=== PATIENT | male | born 1950 | race Caucasian/White ===

== ENCOUNTER → 2023-07-25 11:30 | Day surgery (SDC) | payer MEDICARE, MEDICAID, SELFPAY ==
[2023-06-18 09:32] VITALS: BMI 20.5
--- NOTE | 2023-06-18 09:39 | PC.NURSE ---
Report to the Outpatient Waiting Room, entrance under the green pavilion located off [facility], at time __0700 on date _06/27/23 . Planned Procedure Time: 0900 . Time changes happen often and if your time is changed the preop area will call you the afternoon before. - You and your visitor will be asked to self-screen and do not enter if you have any COVID symptoms. - A mask is optional within the hospital at this time. Patients may have clear liquids (water, carbonated beverages, clear teas, apple juice) until 3 hours prior to surgery with a maximum of 20 ounces. - No food from midnight until time of surgery - Infants may have breast milk until 4 hours before surgery, infant formula 6 hours prior to surgery. - Children will be allowed to drink immediately following surgery. If applicable, please bring a bottle or sippy cup to assist with drinking. Juice, water, soda, and popsicles are readily available. For infants on formula, please bring formula the day of surgery. Pacifiers are allowed. Take the following medications with a SIP of water the morning of surgery: _BUPROPION,DIVALPROEX,PREGABALIN SERTRALINE DO NOT STOP ANY OF YOUR OTHER PRESCRIPTION MEDICATIONS PRIOR TO SURGERY ?EXCEPT THE FOLLOWING Medications to discontinue per physician ___PLAVIX HOLD 7 DAYS PRE OP PER DR CADE.LAST DOSE 06/19/23 Please no make-up, nail welsh, hairspray, perfume, deodorant, or body powder the day of surgery. No jewelry (including any body piercings) or valuables the day of surgery, leave them at home. Please take a shower or bath the night before, or the morning of, surgery with an antibacterial soap. Wear comfortable, loose fitting clothing. Children are encouraged to wear pajamas. - Jewelry must be removed prior to entering the operating room. Rings and piercings that are not removed may be cut off. - The hospital will not accept responsibility for valuables. - Please leave all valuables, including medications, at home the day of surgery. If you are going home after surgery, a licensed m48/m60 tank driver must drive you home. - NO public transportation without another adult if you receive anesthesia. - We recommend that an adult stay with you for 24 hours following discharge. - We also recommend that you do not drive, make important decision, drink alcoholic beverages, or take any drugs that were not prescribed by your health care provider for at least 24 hours after your discharge time. For Pediatric surgeries, we recommend two adults accompany the child home. Follow any additional instructions given to you from your surgeon. If you or anyone in your household have experienced Covid symptoms in the past week, please notify your surgeon or the nurse liaison at the phone number below for possible testing. Telephone instructions given to __PT'S KENTON and asked if any additional questions and then verbalized understanding. Patient advised to call surgeon office or pre surgery nurse liaison [phone] if any additional questions.
--- NOTE | 2023-07-16 15:03 | PC.NURSE ---
Report to the Outpatient Waiting Room, entrance under the green pavilion located off [facility], at time ___30____ on date __07/25/23 . Planned Procedure Time: _1030 . Time changes happen often and if your time is changed the preop area will call you the afternoon before. - You and your visitor will be asked to self-screen and do not enter if you have any COVID symptoms. - A mask is optional within the hospital at this time. Patients may have clear liquids (water, carbonated beverages, clear teas, apple juice) until 3 hours prior to surgery with a maximum of 20 ounces. - No food from midnight until time of surgery - Infants may have breast milk until 4 hours before surgery, formula 6 hours prior to surgery. - Children will be allowed to drink immediately following surgery. If applicable, please bring a bottle or sippy cup to assist with drinking. Juice, water, soda, and popsicles are readily available. For infants on formula, please bring formula the day of surgery. Pacifiers are allowed. Take the following medications with a SIP of water the morning of surgery: ___BUPROPION,DIVALPROEX,PREGABALIN, AND SERTRALINE DO NOT STOP ANY OF YOUR OTHER PRESCRIPTION MEDICATIONS PRIOR TO SURGERY ?EXCEPT THE FOLLOWING Medications to discontinue per physician ____PLAVIX HOLD 7 DAYS PRE OP PER DR CADE. LAST DOSE 07/17/23 Please no make-up, nail albanian, hairspray, perfume, deodorant, or body powder the day of surgery. No jewelry (including any body piercings) or valuables the day of surgery, leave them at home. Please take a shower or bath the night before, or the morning of, surgery with an antibacterial soap. Wear comfortable, loose fitting clothing. Children are encouraged to wear pajamas. - Jewelry must be removed prior to entering the operating room. Rings and piercings that are not removed may be cut off. - The hospital will not accept responsibility for valuables. - Please leave all valuables, including medications, at home the day of surgery. If you are going home after surgery, a licensed warehouse driver must drive you home. - NO public transportation without another adult if you receive anesthesia. - We recommend that an adult stay with you for 24 hours following discharge. - We also recommend that you do not drive, make important decision, drink alcoholic beverages, or take any drugs that were not prescribed by your health care provider for at least 24 hours after your discharge time. For Pediatric surgeries, we recommend two adults accompany the child home. Follow any additional instructions given to you from your surgeon. If you or anyone in your household have experienced Covid symptoms in the past week, please notify your surgeon or the nurse liaison at the phone number below for possible testing. Telephone instructions given to ___PT'S KENTON and asked if any additional questions and then verbalized understanding. Patient advised to call surgeon office or pre surgery nurse liaison [phone] if any additional questions.
--- NOTE | 2023-07-16 15:09 | PC.NURSE ---
STATES NO CHANGE IN HEALTH HX SINCE LAST INTERVIEW ON 06/18/23
[2023-07-25 08:47] VITALS: BP 171/95; PULSE 78; RESP 20; TEMP 36.7; O2SAT 100
[2023-07-25] MEDS: LACTATED RINGERS 1,000 ML 30 ML IV CONT (09:05)
[2023-07-25 09:12] LABS: Glucose Point of Care 115 mg/dl (65-105)
== END | disposition home or self-care (01) ==
PROVIDERS: PCP Family Medicine; Visit Provider Neurological Surgery
DX: M51.16 Intervertebral disc disorders with radiculopathy, lumbar region (principal); Z53.8 Procedure and treatment not carried out for other reasons
CPT/HCPCS: 82948; 99213; G0463; J7120

== ENCOUNTER 2023-08-29 01:09 | Day surgery (SDC) | payer MEDICARE, MEDICAID, SELFPAY ==
[2023-08-21 12:04] VITALS: BMI 25.0
--- NOTE | 2023-08-21 12:10 | PC.NURSE ---
Report to the Outpatient Waiting Room, entrance under the green pavilion located off [facility], at time _0600_ on date _[id number]_. Planned Procedure Time: _0730_. Time changes happen often and if your time is changed the preop area will call you the afternoon before. - You and your visitor will be asked to self-screen and do not enter if you have any COVID symptoms. - A mask is optional within the hospital at this time. Patients may have clear liquids (water, carbonated beverages, clear teas, apple juice) until 3 hours prior to surgery with a maximum of 20 ounces. - No food from midnight until time of surgery Take the following medications with a SIP of water the morning of surgery: ___Divalproex, Sertraline and Pregabalin DO NOT STOP ANY OF YOUR OTHER PRESCRIPTION MEDICATIONS PRIOR TO SURGERY ?EXCEPT THE FOLLOWING Medications to discontinue per physician Cilostazol and Clopidogrel Date to take last dhyw___[id number] Please no make-up, nail austrian, hairspray, perfume, deodorant, or body powder the day of surgery. No jewelry (including any body piercings) or valuables the day of surgery, leave them at home. Please take a shower or bath the night before, or the morning of, surgery with an antibacterial soap. Wear comfortable, loose fitting clothing. - Jewelry must be removed prior to entering the operating room. Rings and piercings that are not removed may be cut off. - The hospital will not accept responsibility for valuables. - Please leave all valuables, including medications, at home the day of surgery. If you are going home after surgery, a licensed bus driver must drive you home. - NO public transportation without another adult if you receive anesthesia. - We recommend that an adult stay with you for 24 hours following discharge. - We also recommend that you do not drive, make important decision, drink alcoholic beverages, or take any drugs that were not prescribed by your health care provider for at least 24 hours after your discharge time. Follow any additional instructions given to you from your surgeon. If you or anyone in your household have experienced Covid symptoms in the past week, please notify your surgeon or the nurse liaison at the phone number below for possible testing. Telephone instructions given to _Yuri patient's son__and asked if any additional questions and then verbalized understanding. Patient advised to call surgeon office or pre surgery nurse liaison [phone] if any additional questions.
[2023-08-29] VITALS (10 sets, daily range): BP systolic 120–171; BP diastolic 56–82; PULSE 71–97; RESP 8–17; TEMP 36.7–36.9; O2SAT 95–100
--- NOTE | ~2023-08-29 | XR_ITS ---
XR fluoroscopy no charge Procedure: Laminectomy TECHNIQUE: Fluoroscopy used during laminectomy performed by [Lucita Palm MD] on 08/29/2023 . 9 seconds of fluoroscopy with 1 images captured. FINDINGS: Correlate with procedure note. IMPRESSION: Fluoroscopy used during laminectomy. Reviewed, dictated and finalized at location B.
[2023-08-29] MEDS: LACTATED RINGERS 1,000 ML 30 ML IV CONT ×2 (06:59→09:38)
[2023-08-29 07:03] LABS: Glucose Point of Care 94 mg/dl (65-105)
--- NOTE | 2023-08-29 07:15 | WPDANESEPPF ---
Anes - Initial Pre Proc Eval Procedure: Operation Date: 08/29/23 07:30 Proposed Procedures p L1-2 Lumbar Laminectomy and Discectomy - Lucita Palm MD Date/Time: 08/29/23 07:15 Surgeon: Lucita Palm MD Pre Op Diagnosis: lumbar disc herniation Patient Data Age: 73 Gender: M Height: 1.68 m Weight: 57.3 kg Last Vital Signs Temp 98.5 F 08/29/23 06:20 Pulse 75 08/29/23 06:20 Resp 16 08/29/23 06:20 BP 159/82 H 08/29/23 06:20 Pulse Ox 100 08/29/23 06:20 O2 Del Method Room Air 08/29/23 06:20 Allergies Allergy/AdvReac Type Severity Reaction Status Date / Time No Known Allergies Allergy Verified 08/29/23 06:14 Home Medications Medication Instructions Recorded Confirmed Type bupropion HCl 150 mg tablet,12 hr 150 mg PO QAM 06/07/23 08/29/23 History sustained-release (Wellbutrin SR) cilostazol 100 mg tablet 100 mg PO BID 06/07/23 08/29/23 History pregabalin 100 mg capsule 100 mg PO BID 06/07/23 08/29/23 History sertraline 100 mg tablet 200 mg PO QAM 06/07/23 08/29/23 History tramadol 50 mg tablet 50 mg PO BID PRN Pain 06/07/23 08/29/23 History zolpidem 10 mg tablet 10 mg PO DAILY@199906/07/23 08/29/23 History clopidogrel 75 mg tablet 75 mg PO DAILY 06/18/23 08/21/23 History divalproex 500 mg tablet,delayed 500 mg PO BID DEPRESSION 06/18/23 08/29/23 History release metformin 500 mg tablet 500 mg PO BID 06/18/23 08/29/23 History Laboratory Tests 08/29/23 07:02 POC Capillary Glucose 94 mg/dl (65-105) Patient hx anesthesia problems: none Family hx anesthesia problems: none Results Review: All pre-operative results and documents have been reviewed as part of the pre-operative evaluation. [facility] Past Medical History Medical History (Updated 06/07/23 @ 09:56 by Lucita Palm MD) Anxiety Arthritis Hypertension Migraines Surgical History Surgical History (Updated 06/07/23 @ 09:38 by Corinne Ng MA) Status post lumbar spine operation Social History Social History (Updated 06/07/23 @ 09:42 by Corinne Ng MA) Smoking packs per day: 1 Smoking cigarettes per day: 20.0 Years smoked: 50 Smoking pack-years: 50.00 Smoking status: Current every day smoker Tobacco type: cigarettes Second hand tobacco smoke exposure: Yes Alcohol intake: former Substance use: never Substance use type: marijuana Lack of Transportation: No Lack of Food: Never True Current Housing: I Have Housing Concerned About Future Housing: No Difficulty Paying Gas/Electric Bills: No Difficulty Paying for Meds: No Currently Unemployed: No Education: Grade School Difficulty w/ Childcare or Family Care: No Living arrangements: with family Occupation/Education: retired Gender identity (if verbalized by the patient): Male Sexual Orientation (if Verbalized by the Patient): Straight or Heterosexual Spiritual care concerns: No Agree to blood products: Yes Anes - Eval Final PreProcedure Day of Procedure 08/29/23 07:15 Patient weight: normal Heart: regular rate and rhythm Lungs: clear to auscultation Airway: Mallampati scale class II Neurological: alert and oriented Last oral intake: >/= 8 hours ASA classification: III Emergent: no Anesthetic plan: proceed Anesthesia type and monitoring: general ETT and standard monitoring Results Review: All pre-operative results and documents have been reviewed as part of the pre-operative evaluation. Informed Consent: The patient's anesthetic plan and its attendant risks and benefits were discussed with the patient/family/POA. Questions were solicited and answers provided to the satisfaction of the patient/family/POA.
--- NOTE | 2023-08-29 07:24 | WPDHPUPDATE1 ---
History and Physical Update Update Date/Time: 08/29/23 07:24 History and Physical has been reviewed, including an updated exam of the patient. There are NO changes in the patient's condition. Risks, benefits, and alternatives have been discussed and questions answered. Patient agrees to proceed with procedure.
--- NOTE | 2023-08-29 07:24 | PM.IMHP ---
H&P: HPI History of Present Illness Date/Time: 08/29/23 07:24 Chief Complaint: Bilateral hip, left leg pain Narrative: Mr. Hill is a? 73-year-old male with history of peripheral vascular disease and hypertension who was referred by Dr. Tse for evaluation of lumbar radiculopathy. ? About 9 months ago, the patient developed back and initially right-sided leg pain without any obvious inciting injury.? The pain quickly transition into the left leg and has been present for 6-9 months.? He has significant pain radiating from the left lower back into the thigh to the knee.? He occasionally has had pain into the foot.? The pain is intermittent but can occur many times per day without warning.? He has not been able to identify any particular activities that bring this on.? He has paresthesias into his thigh as well.? He does have subjective weakness and has had several falls because of this pain.? He attempted physical therapy, but his pain was too significant to participate.? He has had at least a couple epidural steroid injections at L1-2 without any significant benefit. ? Of note, he had what sounds like an iliac stent placed on the right side about a year and half ago.? He has also had what sounds like an iliac to iliac bypass graft. he currently is on cilostazol.? He follows with casting associate Dr. Oliver [facility] at the [facility] [place].? He smokes 1 pack per day for at least 60 years. ? He has had previous lumbar spine surgery 15-20 years ago in the form of what seems like hemilaminectomies. [facility] Past Medical History Medical History (Updated 06/07/23 @ 09:56 by Lucita Palm MD) Anxiety Arthritis Hypertension Migraines Surgical History Surgical History (Updated 06/07/23 @ 09:38 by Corinne Ng MA) Status post lumbar spine operation Social History Social History (Updated 06/07/23 @ 09:42 by Corinne Ng MA) Smoking packs per day: 1 Smoking cigarettes per day: 20.0 Years smoked: 50 Smoking pack-years: 50.00 Smoking status: Current every day smoker Tobacco type: cigarettes Second hand tobacco smoke exposure: Yes Alcohol intake: former Substance use: never Substance use type: marijuana Lack of Transportation: No Lack of Food: Never True Current Housing: I Have Housing Concerned About Future Housing: No Difficulty Paying Gas/Electric Bills: No Difficulty Paying for Meds: No Currently Unemployed: No Education: Grade School Difficulty w/ Childcare or Family Care: No Living arrangements: with family Occupation/Education: retired Gender identity (if verbalized by the patient): Male Sexual Orientation (if Verbalized by the Patient): Straight or Heterosexual Spiritual care concerns: No Agree to blood products: Yes Meds Home Medications and Allergies Home Medications Medication Instructions Recorded Confirmed Type bupropion HCl 150 mg tablet,12 hr 150 mg PO QAM 06/07/23 08/29/23 History sustained-release (Wellbutrin SR) cilostazol 100 mg tablet 100 mg PO BID 06/07/23 08/29/23 History pregabalin 100 mg capsule 100 mg PO BID 06/07/23 08/29/23 History sertraline 100 mg tablet 200 mg PO QAM 06/07/23 08/29/23 History tramadol 50 mg tablet 50 mg PO BID PRN Pain 06/07/23 08/29/23 History zolpidem 10 mg tablet 10 mg PO DAILY@199906/07/23 08/29/23 History clopidogrel 75 mg tablet 75 mg PO DAILY 06/18/23 08/21/23 History divalproex 500 mg tablet,delayed 500 mg PO BID DEPRESSION 06/18/23 08/29/23 History release metformin 500 mg tablet 500 mg PO BID 06/18/23 08/29/23 History Allergies Allergy/AdvReac Type Severity Reaction Status Date / Time No Known Allergies Allergy Verified 08/29/23 06:14 Vital Signs Vital Signs - 24 hr 08/29/23 06:20 Temperature 98.5 F Pulse Rate 75 Respiratory Rate 16 Blood Pressure 159/82 H Pulse Oximetry 100 Oxygen Delivery Room Air Exam Narrative: Left hip flexor 4+/5 Worsened pain with left
[2023-08-29] MEDS: ceFAZolin 2 GM/D5W 50 ML 2 GM/50 ML BAG IVPB (07:30)
[2023-08-29] MEDS: BUPIVACAINE/EPINEPHRINE 0.5% 50 ML VIAL 20 ML INFILTRATE (08:09)
--- NOTE | 2023-08-29 09:27 | P.OPB_ITS ---
Procedure Note - Brief Procedure Note - Brief Date of procedure: 08/29/23 lumbar disc herniation Post-op diagnosis: Same Procedure performed: L1 laminectomy, L1-2 left microdiskectomy Surgeon: Lucita Palm MD Anesthesia: GETA and local Description of procedure: Full L1 laminectomy performed. Free disc fragment identified caudally which was from dura and removed. Small annulotomy performed to remove sub- ligamentous disc fragment Drains: No Packing: No Pathology: None sent Complications: None Condition: Stable Disposition: PACU
[2023-08-29] MEDS: fentaNYL CITRATE INJ (*CRX) 100 MCG/2 ML VIAL 25 MCG IV PUSH ×4 (10:00→10:18)
[2023-08-29 10:16] LABS: Glucose Point of Care 107 mg/dl (65-105)
[2023-08-29] MEDS: MIDAZOLAM HCL (*CRX) 2 MG/2 ML VIAL 1 MG IV PUSH ×2 (10:25→10:30)
--- NOTE | 2023-08-29 18:44 | W.PM.PROC2 ---
Procedure Note - Detailed Date of Procedure 08/29/23 Pre-op Diagnosis lumbar disc herniation with radiculopathy Post-op Diagnosis Same Procedure Performed L1 laminectomy with left L1-2 microdiskectomy Surgeon Lucita Palm MD Adjunct Trainer GAURANG Hay Anesthesia General and Local Indications Mr. Hill is a?73-year-old male with history of peripheral vascular disease on cilostazol who presents with about 9 months of back and left leg pain and paresthesias into the thigh.? He has had several falls because of the pain and weakness in his leg.? He has tried physical therapy and had epidural steroid injections at L1-2 without any long-lasting relief.? On physical exam, he does have some objective weakness in his hip flexor in particular.?MRI shows severe stenosis at L1-2 with a large left-sided caudally-migrated disc herniation. Surgery in the form of L1 laminectomy with L1-2 diskectomy was recommended. Risks including bleeding, pain, infection, weakness, CSF leak, nerve damage, paresthesias, failure to relieve symptoms, and anesthetic complications were discussed. The patient provided written informed consent to proceed. Description of Procedure The patient was brought to the operating room, and general anesthesia was induced. The patient was placed prone on the David frame, and all pressure points were padded. Compression devices were placed on the patient's calves. The C-arm was brought onto the field to localize the appropriate disc space and assist with incisional planning. The previous incision was incoporated partially into his new incision. The area was prepped and draped in usual sterile fashion. A time out was conducted, and pre-operative antibiotics were administered. Local anesthesia was injected into the planned incision. A midline skin incision was made with a 10-blade scalpel, and dissection was carried down with the monopolar cautery to open the fascia. Once the spinous processes were located, a subperiosteal dissection was performed to expose the laminae bilaterally. A self-retaining retractor was placed. The C-arm was brought in to confirm the correct level. The microscope was draped and brought into the field. The spinous process was removed with the Bessieell. The high-speed drill was used to remove the laminae down to the ligamentum flavum. The remaining lamina was removed with kerrison rongeurs. The ligamentum flavum was opened and removed with the Kerrison. The disc space was exposed on the left side, and the dura was retracted. No obvious free fragment was initially identified. The PLL was coagulated and opened sharply. A nerve hook was placed in the disc space to remove any free fragments. Some disc material was removed. The ventral epidural space was again explored, and two pieces of free disc fragment were identified which were adherent to the dura. These were and removed. The Kerrison was then passed into the foraminae to ensure they were open. A Woodsen was used to verify adequate decompression at the cranial and caudal aspects of the decompression. Hemostasis was ensured, and the area was copiously irrigated. No evidence of CSF leak was noted. The muscle was loosely approximated with 0-Vicryl. The fascia was closed with 0-Vicryl in an interrupted fashion. The soft tissue was again copiously irrigated. The dermis was closed with 2-0 and 3-0 interrupted Vicryl. The skin was closed with 4-0 monocryl in subcuticular fashion. Skin glue was applied. The patient was returned supine on the stretcher, extubated, and transferred to PACU without incident. Codes: 50373, 08734 Implants None Estimated Blood Loss 25 Drains No Packing No Pathology None sent Complications None Condition Stable Disposition PACU [facility] Billing Surgery - Charge Forward: Surgery Billing
== END 2023-08-29 11:50 | disposition home or self-care (01) ==
PROVIDERS: PCP Family Medicine; Visit Provider Neurological Surgery
PROC: (CPT 63005; principal; 2023-08-29 07:30)
DX: M51.16 Intervertebral disc disorders with radiculopathy, lumbar region (principal); I10 Essential (primary) hypertension; F41.9 Anxiety disorder, unspecified; F17.210 Nicotine dependence, cigarettes, uncomplicated; Z79.02 Long term (current) use of antithrombotics/antiplatelets; Z79.84 Long term (current) use of oral hypoglycemic drugs
CPT/HCPCS: 63047; 82948; 99199; A9270; J0690; J1100; J1170; J2250; J2405; J2704; J3010; J7120